=== PATIENT | female | born 1940 | race African-American/Black ===

== ENCOUNTER 2017-10-08 20:51 | Emergency (ER) | payer OTHER, MEDICAID ==
[~2017-10-08] VITALS: Ht 160 cm; Wt 64.0 kg
[2017-10-08 20:59] VITALS: BP 167/80
== END 2017-10-08 23:02 | disposition left against medical advice (07) ==
LOC: ER 20:51
DX: R51 Headache (principal); Z53.21 Procedure and treatment not carried out due to patient leaving prior to being seen by health care provider

== ENCOUNTER 2021-11-07 12:34 | Emergency (ER) | payer OTHER, MEDICAID ==
[~2021-11-07] VITALS: Ht 167.6 cm; Wt 75.0 kg
[2021-11-07] MEDS ORDERED: SODIUM CHLORIDE 0.9% 500 ML IV ONE (12:45)
[2021-11-07] MEDS ORDERED: LEVETIRACETAM 1000MG PREMIX 100 ML IV ONE (13:00)
[2021-11-07 13:57] LABS: CHLORIDE 113 mEq/L (98-107)
[2021-11-07 13:58] LABS: BASOPHILS % 0.6 % (0.0-2.0); EOSINOPHILS % 1.1 % (0.0-5.0); HEMATOCRIT. 41.3 % (36.0-48.0); HEMOGLOBIN. 13.3 g/dL (12.0-16.0); LYMPHOCYTES % 29.9 % (20.0-50.0); MEAN CORPUSCULAR HEMOGLOBIN 26.7 pg (28.0-32.0); MEAN CORPUSCULAR VOLUME 82.9 fL (81.0-99.0); MEAN PLATELET VOLUME 8.6 fl (7.4-10.4); NEUTROPHILS % 58.4 % (40.0-76.0); PLATELET 257 x1000/uL (130-400); RED BLOOD CELL COUNT 4.98 mill/uL (4.2-5.4); RED CELL DISTRIBUTION WIDTH 18.5 % (11.6-14.6)
[2021-11-07 14:02] LABS: ETHANOL BLOOD < 10 mg/dL
[2021-11-07 14:04] LABS: CARBAMAZEPINE <0.5 ug/mL ug/mL (4-12)
[2021-11-07 14:09] LABS: PHENOBARBITAL <2.1 ug/mL ug/mL (15.0-40.0)
[2021-11-07 14:11] LABS: VALPROIC ACID < 3.0 ug/mL (50-100)
[2021-11-07 15:40] VITALS: BP 170/77
== END 2021-11-07 16:15 | disposition short-term general hospital (02) ==
LOC: ER 12:43 → CANBEDREQ 22:25
DX: G40.909 Epilepsy, unspecified, not intractable, without status epilepticus (principal); G93.41 Metabolic encephalopathy; E86.0 Dehydration; E87.8 Other disorders of electrolyte and fluid balance, not elsewhere classified; F03.90 Unspecified dementia, unspecified severity, without behavioral disturbance, psychotic disturbance, mood disturbance, and anxiety; I10 Essential (primary) hypertension; Z20.822 Contact with and (suspected) exposure to COVID-19; Z86.73 Personal history of transient ischemic attack (TIA), and cerebral infarction without residual deficits
CPT/HCPCS: 36415; 70450; 71045; 80053; 80156; 80165; 80184; 80185; 80320; 83880; 84484; 85025; 87426; 93005; 96365; 99291; J1953; J7040; G0480

== ENCOUNTER 2022-05-19 11:59 | Emergency (ER) | payer MEDICAID, OTHER ==
[~2022-05-19] VITALS: Ht 167.6 cm; Wt 77.1 kg
[2022-05-19] MEDS ORDERED: LEVETIRACETAM 1000MG PREMIX 100 ML IV ONE (12:15)
[2022-05-19 12:35] LABS: BASOPHILS % 0.5 % (0.0-2.0); EOSINOPHILS % 1.1 % (0.0-5.0); HEMATOCRIT. 36.7 % (36.0-48.0); HEMOGLOBIN. 11.6 g/dL (12.0-16.0); LYMPHOCYTES % 19.5 % (20.0-50.0); MEAN CORPUSCULAR HEMOGLOBIN 26.9 pg (28.0-32.0); MEAN PLATELET VOLUME 8.4 fl (7.4-10.4); MONOCYTES % 9.1 % (2.0-8.0); NEUTROPHILS % 69.8 % (40.0-76.0); PLATELET 257 x1000/uL (130-400); RED BLOOD CELL COUNT 4.32 mill/uL (4.2-5.4); RED CELL DISTRIBUTION WIDTH 17.2 % (11.6-14.6)
[2022-05-19 12:45] LABS: CHLORIDE 109 mEq/L (98-107)
[2022-05-19 12:54] LABS: CREATINE KINASE 60 IU/L (26-192); ETHANOL BLOOD < 10 mg/dL
[2022-05-19] MEDS ORDERED: SODIUM CHLORIDE 0.9% 500 ML IV ONE (13:15)
[2022-05-19 17:30] VITALS: BP 132/67
== END 2022-05-19 17:50 | disposition short-term general hospital (02) ==
LOC: ER 11:59 → CANBEDREQ 14:55 → ER 17:50
DX: G40.909 Epilepsy, unspecified, not intractable, without status epilepticus (principal); G93.49 Other encephalopathy; I10 Essential (primary) hypertension; E11.9 Type 2 diabetes mellitus without complications; I69.320 Aphasia following cerebral infarction; F03.90 Unspecified dementia, unspecified severity, without behavioral disturbance, psychotic disturbance, mood disturbance, and anxiety; Z20.822 Contact with and (suspected) exposure to COVID-19
CPT/HCPCS: 36415; 70450; 71045; 80053; 80320; 82550; 84484; 85025; 87426; 93005; 96361; 96365; 99285; C9803; J1953; J7040; G0480

== ENCOUNTER 2024-05-10 07:18 | Emergency (ER) | payer OTHER, MEDICAID ==
[~2024-05-10] VITALS: Ht 167.6 cm; Wt 55.0 kg
[2024-05-10 07:21] VITALS: O2SAT 97
[2024-05-10 08:54] LABS: BASOPHILS % 0.6 % (0.0-2.0); LYMPHOCYTES % 28.4 % (20.0-50.0); MEAN CORPUSCULAR HEMOGLOBIN 28.5 pg (28.0-32.0); MEAN CORPUSCULAR HGB CONC 31.5 g/dL (31.0-37.0); MEAN CORPUSCULAR VOLUME 90.3 fL (81.0-99.0); MEAN PLATELET VOLUME 8.2 fl (7.4-10.4); MONOCYTES % 10.4 % (2.0-8.0); NEUTROPHILS % 59.6 % (40.0-76.0); PLATELET 253 x1000/uL (130-400); RED BLOOD CELL COUNT 3.87 mill/uL (4.2-5.4); WHITE BLOOD COUNT 5.7 x1000/uL (4.5-11.0)
[2024-05-10] MEDS: SODIUM CHLORIDE 0.9% 500 ML IV ONE (09:01)
[2024-05-10 09:06] LABS: CHLORIDE 108 mEq/L (98-107); POTASSIUM 3.4 mEq/L (3.5-5.1); SODIUM 142 mEq/L (136-145)
[2024-05-10 09:07] LABS: CALCIUM 11.5 mg/dL (8.7-10.4); CARBON DIOXIDE 28 mEq/L (21-32)
[2024-05-10 09:12] LABS: CREATININE 0.7 mg/dL (0.6-1.0); GLUCOSE 92 mg/dL (70-105); UREA NITROGEN BLOOD 18 mg/dL (9-23)
[2024-05-10] MEDS ORDERED: NITROGLYCERIN SPRAY/4.9GM CAN TL NR (10:30)
[2024-05-10 12:50] VITALS: BP 143/92; PULSE 67; RESP 14; TEMP 98.5
== END 2024-05-10 13:10 | disposition short-term general hospital (02) ==
LOC: ER 07:18 → CANBEDREQ 11:56 → ER 13:10
DX: R51.9 Headache, unspecified (principal); E11.9 Type 2 diabetes mellitus without complications; I10 Essential (primary) hypertension; Z20.822 Contact with and (suspected) exposure to COVID-19; Z98.890 Other specified postprocedural states; Z86.59 Personal history of other mental and behavioral disorders; Z86.73 Personal history of transient ischemic attack (TIA), and cerebral infarction without residual deficits
CPT/HCPCS: 99285; 70450; 96360; 87426; 80048; 85025; 36415; 72170; 72192; J7030